=== PATIENT | male | born 1965 | race Caucasian/White ===

== ENCOUNTER 2018-12-06 06:25 | Inpatient (IN) | payer MEDICAID ==
[~2018-12-06] VITALS: Ht 175.3 cm; Wt 96.2 kg
[2018-12-06 06:27] VITALS: Ht 175.3 cm; Wt 96.2 kg
--- NOTE | 2018-12-06 06:35 | NUR ---
PT CAME IN FOR RIGHT UPPER QUADRANT ABDOMINAL PAIN X 3HRS. REPORTS N/V. PT AWAKE, ALERT, RESPIRATIONS EVEN AND UNLABORED. SAFETY PRECAUTIONS IN PLACE
--- NOTE | 2018-12-06 06:50 | NUR ---
DR. MARIEE AT BEDSIDE FOR MSE
[2018-12-06 07:10] LABS: BASOPHIL % 0.8 % (0-2); PLATELET COUNT 154 x10^3mcL (130-400)
--- NOTE | 2018-12-06 07:18 | NUR ---
REPORT GIVEN TO RAMO, ALL QUESTIONS AND CONCERNS WERE ADDRESSED
[2018-12-06 07:19] LABS: RED CELL DISTRIBUTION WIDTH 14.6 % (11.5-14.5)
--- NOTE | 2018-12-06 07:31 | NUR ---
US AT BEDSIDE
[2018-12-06 07:32] LABS: CALCIUM 9.6 mg/dL (8.5-10.1); CARBON DIOXIDE 27.9 mmol/L (21-32); CHLORIDE SERUM 100 mmol/L (98-107); GFR1 > 60 mL/min; GLUCOSE SERUM 359 mg/dL (74-106); POTASSIUM SERUM 4.7 mmol/L (3.5-5.1); SODIUM SERUM 139 mmol/L (136-145)
[2018-12-06 07:36] LABS: ALBUMIN 3.8 g/dL (3.4-5.0); ALKALINE PHOSPHATASE 175 U/L (46-116); ALT/SGPT 31 U/L (16-63); AST/SGOT 13 U/L (15-37); BILIRUBIN TOTAL 1.06 mg/dL (0.20-1.00); LIPASE 153 IU/L (73-393); TOTAL PROTEIN, SERUM 7.7 g/dL (6.4-8.2)
--- NOTE | 2018-12-06 08:24 | NUR ---
PT STATES RUQ ABD PAIN 01/02, MEDICATED ORDERED.
--- NOTE | 2018-12-06 08:25 | NUR ---
DR MARIEE AT BEDSIDE TO GO OVER PLAN OF CARE
--- NOTE | 2018-12-06 10:43 | NUR ---
DR MARIEE AT BEDSIDE TO GO OVER PLAN OF CARE
--- NOTE | 2018-12-06 12:35 | NUR ---
PT ADMIT TO TELE ROOM 225B GAVE REPORT TO STORM
--- NOTE | 2018-12-06 13:20 | NUR ---
[facility] ACCOMPANIED BY RN, TRANSPORTER, AND PT'S DAUGHTER, SHAVONNE DOWLING. PT A/A/O X 4, CALM, COOPERATIVE. AMBULATORY, NO GAIT OR BALANCE IMPAIRMENT NOTED WHEN WALKING FROM [facility] TO BED. ON TELE # 28, NSR, HR 73, DENIES CHEST PAIN OR DISCOMFORT AT THIS TIME. NO ACUTE RESPIRATORY DISTRESS NOTED. ABD SOFT, ROUND, NON-TENDER, HYPERACTIVE BOWEL SOUNDS AND TYMPANY UPON PERCUSSION TO QUADS 1 AND 4, LAST BM 12/05/18, FORMED. IV SITE LAC 20G, CDI. ORIENTED PT AND DAUGHTER TO ROOM, BED CONTROLS, CALL LIGHT SYSTEM. SIDE RAILS UP X 2, BED IN LOW POSITION. WILL ENDORSE TO HUA INMAN.
[2018-12-06 13:38] LABS: MAGNESIUM 1.9 mg/dL (1.8-2.4)
[2018-12-06 14:09] VITALS: BP 135/89
--- NOTE | 2018-12-06 16:23 | NUR ---
C/O ABD PAIN ON 12/03. NORCO 7.5/325 PO GIVEN. CONTINUE MONITOR.
[2018-12-06] MEDS ORDERED: JANUMET PO (17:00)
[2018-12-06 18:18] VITALS: BP 146/87
--- NOTE | 2018-12-06 18:55 | NUR ---
TOLERATED CLEAR LIQUID DIET. NO N/V. NO C/O PAIN NOW. IVHL'D PER ORDER. VOID X2. URINE SAMPLE SENT. WOULD BE NPO AFTER MN FOR POSSIBLE SURGERY. ENDORSED CARE TO [facility] NURSE.
[2018-12-06 19:22] LABS: microscopic required? YES; urine erythrocyte NEGATIVE (NEGATIVE)
--- NOTE | 2018-12-06 19:26 | NUR ---
RECEIVED PATIENT IN BED AWAKE ,ALERT AND ORIENTED WITH NO C/O ABDOMINAL PAIN AND DISCOMFORT AT THIS TIME. BREATHING EASY AND NONLABOR SATTING AT 100% RA. TELE#28 NSR ON MONITOR, DENIES CHESTPAIN. IV TO LAC HEPLOCK AND FLUSHED WITH NS. WILL CONTINUE TO MONITOR. CALL LIGHT WITHIN REACH.
[2018-12-06 19:39] LABS: AMPHETAMINE QUAL UR NONE DETECTED (See below)
[2018-12-06 20:59] VITALS: BP 123/76
--- NOTE | 2018-12-06 23:48 | NUR ---
INSTRUCTION GIVEN ON NPO AND PATIENT VERBALIZED UNDERSTANDING. DENIES ABDOMINAL DISCOMFORT AT THIS TIME.
--- NOTE | 2018-12-07 05:05 | NUR ---
CHECKED AT INTERVALS FOR NEEDS AND COMFORT. KEPT ON NPO POST MIDNIGHT. NO SIGNIFICNAT CHANGES IN CONDITION NOTED.
[2018-12-07 05:45] VITALS: BP 115/67
[2018-12-07 06:21] LABS: BASOPHIL % 0.3 % (0-2); PLATELET COUNT 138 x10^3mcL (130-400)
[2018-12-07 06:37] LABS: CALCIUM 8.9 mg/dL (8.5-10.1); CARBON DIOXIDE 25.7 mmol/L (21-32); CHLORIDE SERUM 106 mmol/L (98-107); CREATININE SERUM 0.9 mg/dL (0.7-1.3); GFR1 > 60 mL/min; GLUCOSE SERUM 171 mg/dL (74-106); POTASSIUM SERUM 3.8 mmol/L (3.5-5.1); SODIUM SERUM 145 mmol/L (136-145)
[2018-12-07 06:44] LABS: RED CELL DISTRIBUTION WIDTH 14.9 % (11.5-14.5)
--- NOTE | 2018-12-07 07:15 | NUR ---
RECIVED HAND OFF REPORT FOR PATIENT, FOUND PATIENT RESTING COMFORTABLY AT THIST AISHA WITH FAMILY AT BEDSIDE. A/0 X4 WITH NO COMPLAINTS ON RA, TELE #28. IV IN LEFT AC SITE WNL. NO WEAKNESS, AND ABLE TO AMBULATE. CALL LIGHT WITHIN REACH. INFOMRED PATIENT THATPROCEDURE WAS SCHEDULED THIS MORNING AND WILL BE BACK WITH MORE INFORMATION
--- NOTE | 2018-12-07 07:55 | NUR ---
DR MORALES AT BEDSIDE WITH OR NURSE HANNAH. EXPLAINED PROCEDURE AND CONSENT WAS WITNESSED BY ZAHRA SEQUEIRA. PATIENT QUESTIONS WERE ANSWERED. PATIENT TELE MONITOR #28 REMOVED FROM PATIENT, TELE MONITOR NOTIFIED THAT PATIENT IS OFF FLOOR. PAT[facility]UL[facility] TO [facility] AND TAKEN OFF FLOOR BY OR STAFF.
[2018-12-07 08:14] VITALS: BP 136/79
--- NOTE | 2018-12-07 10:13 | NUR ---
Discount pharmacy card and list to low cost medical clinics given to patient by Suzette.
--- NOTE | 2018-12-07 10:19 | NUR ---
HUA SWEENEY CALLED TO GIVE REPORT. PATIENT TO BE RETURNED TO FLOOR AT 1030.
--- NOTE | 2018-12-07 10:41 | NUR ---
RETURNED TO FLOOR BY ZAHRA SEQUEIRA. PATIENT SLEEPING BUT ROUSABLE TO A/0 X4. ASSISTED PATIENT TO TRANSFER FROM [facility] TO BED. PLACED IN POSTION OF COMFORT. TELE #28 REATTACHED AND VERIFIED BY TELE MONITOR. PATIENT COMPLAINING OF SLIGHT DISCOMFORT TO ABDOMEN. ASSESSED SURGICAL SITES. X4 SITES COVERED WITH BANDAIDS, NO REDNESS OR DISCHARGE NOTED. REPORTED TO VE SUTURES AND KORIN. PICTURE IN CHART CALL LIGHT WITHIN REACH. WILL CONTINUE TO MONITOR
[2018-12-07 10:45] VITALS: BP 121/52
--- NOTE | 2018-12-07 11:11 | NUR ---
SURGEON DID NOT PUT A DIET IN FOR PATIENT. CALLED DR GODINEZ AND HER WILL ENTER FULL LIQUID DIET TOLERATED
[2018-12-07 11:26] VITALS: BP 119/73
--- NOTE | 2018-12-07 12:10 | NUR ---
SPOKE WITH LENNY ABOUT PATIENT DM MANAGEMANET. PATIENT REPORTS TAHT HE HAS A PRESCRPTION FOR METFORMIN BUT DOES NOT TAKE IT HE HAS RUN OUT. PATIENT DOES NOT HAVE A PHYSCIAN IN [place] SO CANNOT GET IT REFILLED. EYAD REPORTS TAHT HE CHECKS HIS SUGAR OFTEN BUT DOES NOT TAKE HIS PO MEDICAITONS
--- NOTE | 2018-12-07 12:36 | NUR ---
OBSERVED PATIENT SIDE LAYING IN BED WITH EYES CLOSED, APPARENTLY ASLEEP. BREATHING EVEN, NO DISTRESS NOTED. FAMILY NO LONGER AT BEDSIDE. CALL LIGHT WITHIN REACH
--- NOTE | 2018-12-07 14:10 | NUR ---
NOTIFIED BY [facility] THAT PATIENT ABDOMEN WAS BLLEDING. REINFORCED DRESSING. FRANK SEQUEIRA REMOVED BANDAID. SITE WAS CLEAN AND BLEEDING WAS COMING FROM THE STAPLE. BLEEDIND HAD STOPPED AFTER PRESSURE. NEW BANDAID APLIED. PATIENT NOT COMPLAINING OF PAIN AT THIS TIME
[2018-12-07 16:30] VITALS: BP 130/67
--- NOTE | 2018-12-07 16:40 | NUR ---
BS RESULT WAS 413, NOTIFIED DR GRETCHEN FORRESTER TI WAS OKA TO GIVE COVERAGE OF 18 UNITS INSULIN. PATIENT WAS ALSO COMPLAINING OF PAIN TO THE AMBDOMEN, 12/03. REQUESTED NORCO PER ORDER. WILL RE ASSESS PAIN IN 1 HOUR. CALL LIGHT WITHIN REACH
[2018-12-07 19:37] VITALS: BP 120/70
--- NOTE | 2018-12-07 19:37 | NUR ---
RECEIVED PT FROM AM NURSE, PT WALKING ON THE HALLWAY. PT AAOX4, TELE# 28 BP 120/70 HR 90, DENIES CP/PRESSURE. PALPABLE PULSES TO BLE AND BUP, NO EDEMA NOTED. LUNG SOUNDS CTA ON RA O2 100% BREATHING EVEN AND UNLABORED, NO SIGNS OF RESP DISTRESS NOTED. ABD SOFT AND ROUND, HYPOACTIVE BOWEL SOUNDS X4 QAUD, STATES PASSING GAS AND BURPING. ABD INCISIONS X4 COVERED WITH BAND AIDS CDI. DENIES NAUSEA/VOMITNG. VOIDS FREELY BRP, AMBULATORY. SL TO LAC.BED AT LOWEST POSITION, CALL LIGHT WITHING REACH, INSTRUCTED TO CALL FOR ASSISTANCE AT ALL TIMES, WILL CONTINUE TO MONITOR.
--- NOTE | 2018-12-08 05:22 | NUR ---
PT SLEPT WELL THROUGHOUT NIGHT, BREATHING EVEN AND UNLABORED, NO SIGNS OF RESP DISTRESS NOTED. PT STATED PASSING GAS BUT NO BM YET. TOLERATING FULL LIQUIDS WELL. BED AT LOWEST POSITION, CALL LIGHT WITHING REACH. ALL NEEDS ASSESSED AND ATTENDED. WILL ENSORSE CARE TO AM NURSE.
[2018-12-08 05:51] VITALS: BP 139/89
[2018-12-08 06:46] LABS: PLATELET COUNT 138 x10^3mcL (130-400)
[2018-12-08 06:50] LABS: CARBON DIOXIDE 24.7 mmol/L (21-32); CHLORIDE SERUM 108 mmol/L (98-107); CREATININE SERUM 0.8 mg/dL (0.7-1.3); GFR1 > 60 mL/min; GLUCOSE SERUM 132 mg/dL (74-106); PHOSPHOROUS 3.9 mg/dL (2.5-4.9); SODIUM SERUM 145 mmol/L (136-145)
[2018-12-08 07:13] LABS: BASOPHIL % 0 % (0-2)
--- NOTE | 2018-12-08 07:38 | NUR ---
RECEIVED HAND OFF REPORT FROM OFF GOING RN. FOUND PATIENT SITTING UP IN BED A/O X4 ON RA COMPLAINING OF 5/10 PAIN TO THE SURGICAL SITES ON HIS ABDOMEN. ADMINISTERED NORCO PRN FOR PAIN PER MAR. PATIENT SAID A DOCTOR CAME AND SAW HIM AND DISCUSSED DISCHARGE. INSTRUCTED PATIENT TO USE CALL LIGHT FOR ASSISTANCE AND WILL REASSESS PAINT PAIN IN 1 HOUR
[2018-12-08 08:10] VITALS: BP 126/78
--- NOTE | 2018-12-08 08:33 | NUR ---
PAIN REEVALUATION. PAIN DOWN TO 3/10, COMPLAINING OF SLIGHT HEADACHE. WILL REASSESS. PATIENT JUST WANTED TO REST AT THIS TIME. CALL LIGHT WITHIN REACH
--- NOTE | 2018-12-08 11:43 | NUR ---
BS WAS 264 COVERED WITH 9UNIT REGULAR INSULIN. ANSWERED QUESTIONS ABOUT DISCHARGE. FAMILY AT BEDSIDE
[2018-12-08] MEDS ORDERED: MIRALAX17 GM/Dose PO (11:59)
[2018-12-08] MEDS ORDERED: NORCO1 TA2 PO (11:59)
--- NOTE | 2018-12-08 12:01 | NUR ---
Initial Nutrition Assessment: Ponce Crowder 225T-B Dx: Chest pain and intractable abdominal pain PMHx: Diabetes mellitus, type II PSHx: Rotator cuff surgery Labs: (12/08) BH, WBC:12.3H (12/06) T bili:1.06H, AST:13L, LDL:113H, A1c:9H, Meds: D10%, Humulin, Nocro, Tylenol and Zofran Diet: [facility] full liquid diet PO Intake: no PO intake recorded, diet advanced today Ht: 69in, 5'9" Wt:211#, 96.162kg BMI:31.3kg/m2 (obese) Bed scale: IBW:160#, 73kg IBW:132% UBW: 210# Age: 53 y/o male Food Allergies: NKFA Skin: intact Cayden: 22 Edema: none present GI: s/p lap zbigniew. +flatus Last BM:12/05 Nursing Trigger: unintentional wt loss >10# in past month Pt admitted with abdominal pain and chest pain. Pt reported to chills with 1 episode of vomtiing per H&P. Per progress note 12/07, pt is scheduled for lap cholecystectomy today at [address] Martin. During visit, pt was seen with family at bedside. Pt reported that he is going to be discaheged today. Pt with a good appetite with no c/o GI issues. Problem with: N/V/D/C: No Problems with: Chewing/Swallowing: No Current appetite: Good Recent wt change:+1# %wt change:-1.1% Vitamin/Supplement use:No Special diet at home:[facility] Physical activity:No Nutrition education given: offered DM diet education due to elevated A1c, however, pt declined. Food-drug interactions?No Education given?N/A Estimated Nutritional Needs Based on ideal body weight 73kg Energy: 1825-2190kcal/d (25-30kcal/kg for maintenance) Protein: 73g/d (1g/kg for maintenance) Fluid: 1800-2100ml/d (1 ml/kcal) or per doctor Nutrition Diagnosis 1. Inadequate energy intake related to insufficient kcals per diet order as evidenced by pt on full liquid diet. 2. Obesity related to excessive caloric intake as evidenced by BMI:31.3kg/2m and 132% of IBW. Intervention 1. Recommend advance diet as tolerated to low fat. Monitor/Evaluate Goal: PO intake at least 75% of estimated needs Monitor: PO intake, Labs, GI function F/U in 3-5 days as moderate risk:12/11-
--- NOTE | 2018-12-08 12:02 | NUR ---
1. Recommend advance diet as tolerated to low fat CCHO.
--- NOTE | 2018-12-08 12:57 | NUR ---
INFORMED PATIENT THAT DISCHARGE ORDERS ARE IN AND WILL BEGIN WORKING ON ORDERS
[2018-12-08 13:07] VITALS: BP 149/82
[2018-12-08 13:16] VITALS: BP 149/82
--- NOTE | 2018-12-08 13:51 | NUR ---
DISCHARGE INSTRUCTION GIVEN. GAVE PATIENT AND DAUGHTER DR MORALES'S NUMBER TO CALL AND SCHEDULE FOLLOWUP APPOINTMENT BY 12/14. INSTRUCTED PATIENT ABOUT FOLLOW UP APPOINTMENT ON 12/31. INSTRUCTED PATIENT ABOUT CARE OF INCISIONS. GAVE PATIENT PRESCRIPTIONS WRITTEN BY DR SHOEMAKER. ASSESSED SURGICAL SITES, WNL, NO REDNESS, DISCHARGE, OR SWELLING. REDRESSED WITH BANDAID. REMOVED PATIENT IV FROM LAC, CATH IN TACT. SITE WNL, NO BLEEDING SWELLING OR REDNESS. PATIENT ESCORTED BY BIOCHEMICAL DEVELOPMENT ENGINEER OFF UNIT WITH ALL BELONGINGS.
== END 2018-12-08 13:53 | disposition home or self-care (01) | DRG 263 ==
LOC: ED 06:25 → DU 11:32
PROVIDERS: Emergency Medicine; Surgery; ADMIT Internal Medicine
PROC: 0FT44ZZ Resection of Gallbladder, Percutaneous Endoscopic Approach (ICD-10-PCS; principal; 2018-12-07 08:30)
DX: K80.10 Calculus of gallbladder with chronic cholecystitis without obstruction (principal); N17.0 Acute kidney failure with tubular necrosis; E11.65 Type 2 diabetes mellitus with hyperglycemia; E83.39 Other disorders of phosphorus metabolism; E78.5 Hyperlipidemia, unspecified; Z79.84 Long term (current) use of oral hypoglycemic drugs; Z68.31 Body mass index [BMI] 31.0-31.9, adult
CPT/HCPCS: 82962; G0378; J0330; J0690; J1170; J1815; J1885; J2405; J2704; J2710; J3010; J3490; J7030; Q0092; Q9967